=== PATIENT | female | born 2005 | race Caucasian/White ===

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

== ENCOUNTER 2024-05-31 20:58 | Emergency (ER) | payer MEDICAID ==
[~2024-05-31] VITALS: Ht 165.1 cm; Wt 51.8 kg
[2024-05-31 21:04] VITALS: BP 128/65; PULSE 77; TEMP 98.6; O2SAT 98
[2024-05-31 21:48] VITALS: RESP 16
== END 2024-05-31 21:49 | disposition home or self-care (01) ==
LOC: ER 20:58
DX: J32.8 Other chronic sinusitis (principal); F12.90 Cannabis use, unspecified, uncomplicated; Z88.8 Allergy status to other drugs, medicaments and biological substances; Z79.2 Long term (current) use of antibiotics; Z79.1 Long term (current) use of non-steroidal anti-inflammatories (NSAID); Z79.52 Long term (current) use of systemic steroids
CPT/HCPCS: 99282

== ENCOUNTER 2024-07-07 15:46 | Outpatient (CLI) | payer MEDICAID | END 2024-07-07 23:59 | disposition home or self-care (01) | LOC: MRI 15:46 | PROVIDERS: ATTEND Neuromusculoskeletal Medicine & OMM | DX: G43.719 Chronic migraine without aura, intractable, without status migrainosus (principal) | CPT/HCPCS: 70551 ==

== ENCOUNTER 2024-08-09 13:00 | Outpatient (CLI) | payer MEDICAID | END 2024-08-09 23:59 | disposition home or self-care (01) | LOC: CARD DIAG 13:00 | PROVIDERS: ATTEND Family Medicine | DX: I08.8 Other rheumatic multiple valve diseases (principal); R07.89 Other chest pain; R05.3 Chronic cough | CPT/HCPCS: 71046; 93306 ==

== ENCOUNTER 2024-11-27 14:57 | Emergency (ER) | payer MEDICAID ==
[~2024-11-27] VITALS: Ht 170.2 cm; Wt 48.0 kg
[2024-11-27 15:57] VITALS: BP 123/72; PULSE 65; RESP 16; TEMP 98.4; O2SAT 99
== END 2024-11-27 15:58 | disposition home or self-care (01) ==
LOC: ER 14:58
DX: M54.2 Cervicalgia (principal); F12.90 Cannabis use, unspecified, uncomplicated; Z88.8 Allergy status to other drugs, medicaments and biological substances
CPT/HCPCS: 99281